=== PATIENT | male | born 1995 | race Caucasian/White ===

== ENCOUNTER 2018-04-02 18:28 | Emergency (ER) | payer OTHER, MEDICAID, SELFPAY ==
[2018-04-02 18:36] VITALS: BP 133/77; PULSE 70; RESP 20; TEMP 36.4; O2SAT 96
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
== END 2018-04-02 19:41 | disposition left against medical advice (07) ==
LOC: ED 18:31
DX: S61.012A Laceration without foreign body of left thumb without damage to nail, initial encounter (principal)
CPT/HCPCS: 99281; 99282

== ENCOUNTER 2018-06-17 05:59 | Emergency (ER) | payer OTHER, MEDICAID, SELFPAY ==
[2018-06-17 06:15] VITALS: BP 149/96; PULSE 89; RESP 18; TEMP 37.1; O2SAT 98; BMI 26.6
[2018-06-17] MEDS: TET,DIPH,PERTUSS(ACELL),VAC/PF 0.5 ML SYRINGE IM (06:27)
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
[2018-06-17 06:47] VITALS: BP 126/100; PULSE 92; RESP 19; O2SAT 97
== END 2018-06-17 06:48 | disposition home or self-care (01) ==
PROVIDERS: Emergency Provider Emergency Medicine
DX: S61.011A Laceration without foreign body of right thumb without damage to nail, initial encounter (principal); W25.XXXA Contact with sharp glass, initial encounter
CPT/HCPCS: 12001; 90471; 99283; 90715